=== PATIENT | female | born 1970 | race Two or more races ===

== ENCOUNTER 2024-10-11 06:55 | Day surgery (SDC) | payer OTHER ==
[2024-10-11] MEDS ORDERED: GLUCAGON 1 MG VIAL IV STA (11:05)
[2024-10-11] MEDS ORDERED: MIDAZOLAM HCL 2 MG/2 ML VIAL IV ONE (11:15)
[2024-10-11] MEDS ORDERED: ONDANSETRON HCL 2 MG/ML VIAL IV ONE (11:15)
[2024-10-11] MEDS ORDERED: fentaNYL CITRATE 50 MCG/ML AMPUL IV PUSH ONE (11:15)
[2024-10-11] MEDS ORDERED: DIPHENHYDRAMINE HCL 50 MG/ML VIAL 1ML IV ONE (11:15)
== END 2024-10-11 12:35 | disposition home or self-care (01) ==
LOC: AMB-ENDOS 06:55
PROVIDERS: ATTEND Colon & Rectal Surgery
DX: K57.30 Diverticulosis of large intestine without perforation or abscess without bleeding (principal); K57.32 Diverticulitis of large intestine without perforation or abscess without bleeding; K62.89 Other specified diseases of anus and rectum